=== PATIENT | male | born 1960 | race Caucasian/White ===

== ENCOUNTER → 2018-06-30 10:12 | Outpatient (CLI) | payer OTHER, SELFPAY ==
[2018-06-30 11:11] LABS: Absolute Lymphocyte Count 1.91 X10^3/ul (0.83-4.51); Absolute Neutrophil Count 4.3 X10^3/uL (2.0-7.7); Basophil# 0.02 X10^3/uL; Basophil% 0.3 % (0-1); Eosinophil# 0.25 X10^3/uL; Eosinophils% 3.5 % (0-5); Hematocrit 42.5 % (40-54); Lymphocyte # 1.91 X10^3/ul (4.0); Lymphocyte % 26.8 % (19-41); Mean Corp Hgb Conc 35.3 g/gl (32-36); Mean Corpuscular Hgb 31.4 pg (27.0-32.0); Mean Corpuscular Volume 88.9 fL (80-94); Mean Platelet Vol. 10.5 fl (6.2-12.0); Monocyte# 0.67 X10^3/uL; Monocyte% 9.4 % (0-10); Neutrophil # 4.27 X10^3/uL (2.7-7.7); Neutrophil % 59.7 % (47-70); Platelet Count 271 K/mm3 (150-450); RBC Distribution Width CV 12.2 % (11.6-14.6); RBC Distribution Width SD 39.4 fl (35.1-43.9); Red Blood Count 4.78 M/mm3 (4.6-6.2); White Blood Count 7.1 K/mm3 (4.4-11.0)
[2018-06-30 11:17] LABS: POSITIVE COUNT NO; POSITIVE DIFFERENTIAL NO; POSITIVE MORPHOLOGY NO
[2018-06-30 11:44] LABS: AST(SGOT) 43 U/L (15-37); Alanine Aminotransfer ALT/SGPT 88 U/L (16-61); Albumin, Serum 4.3 g/dL (3.2-5.0); Alkaline Phosphatase 67 U/L (45-117); Anion Gap 10 (5-15); BUN 16 mg/dL (7-18); BUN/Creat Ratio 15.8 RATIO (10-20); Bilirubin, Direct 0.11 mg/dL (0.00-0.30); Chloride 104 mmol/L (98-107); Cholesterol 174 mg/dL (200); Creatinine, Serum 1.01 mg/dL (0.70-1.30); EST Glomerular Filtration Rate 80 mL/min (>60); Est Glom Filt Rate - Afr Amer 97 mL/min (>60); Globulin 3.5 g/dL (2.2-4.2); Glucose 108 mg/dL (74-106); High Density Lipoprotein 43 mg/dL; Potassium 4.4 mmol/L (3.5-5.1); Protein, Total 7.8 g/dL (6.4-8.2); Sodium Level 140 mmol/L (136-145); T4 Total, Thyroxin 10.6 ug/dL (4.5-12.1); Triglycerides 150 mg/dL; Very Low Density Lipoprotein 30 mg/dL (5-40)
== END ==
PROVIDERS: Family Provider Family Medicine; PCP Family Medicine; Visit Provider Internal Medicine Cardiovascular Disease
DX: R00.0 Tachycardia, unspecified (principal); E78.5 Hyperlipidemia, unspecified; I10 Essential (primary) hypertension; R94.31 Abnormal electrocardiogram [ECG] [EKG]
CPT/HCPCS: 36415; 80048; 80061; 80076; 83735; 84436; 84443; 85025

== ENCOUNTER → 2018-07-07 09:43 | Outpatient (CLI) | payer OTHER, SELFPAY | PROVIDERS: Family Provider Family Medicine; PCP Family Medicine; Visit Provider Internal Medicine Cardiovascular Disease | DX: R00.0 Tachycardia, unspecified (principal); I10 Essential (primary) hypertension; R94.31 Abnormal electrocardiogram [ECG] [EKG] | CPT/HCPCS: 93306; Q9957; A4216; C8929 ==

== ENCOUNTER 2019-01-06 07:42 | Emergency (ER) | payer OTHER, SELFPAY ==
[2018-12-07 10:27] VITALS: BMI 34.1
[2019-01-06 07:46] VITALS: BP 168/102; PULSE 80; RESP 16; TEMP 35.9; O2SAT 98; BMI 34.4
--- NOTE | 2019-01-06 08:30 | RAD_ITS ---
STUDY: X-RAY - RIGHT KNEE REASON FOR EXAM: Male, 58 years old. Pain. TECHNIQUE: 3 view(s) of the knee. COMPARISON: None. FINDINGS: Normal visualized distal femur. Normal visualized proximal tibia and fibula. Normal proximal tibiofibular articulation. Normal medial femorotibial compartment. Normal lateral femorotibial compartment. Normal patellofemoral articulation. The soft tissue structures are unremarkable. RAD/Knee 3 Views IMPRESSION: Normal x-ray examination of the knee. Electronically Signed: Franky Lockwood MD at 9:32 EST , Service support ,
--- NOTE | 2019-01-06 08:30 | VDLE_ITS ---
Reason For Study: pain RIGHT LEFT GSV is normal. CFV is compressible, spontaneous, phasic, CFV is compressible, spontaneous, phasic, competent, and demonstrates normal competent and demonstrates normal augmentation. augmentation. FV is compressible, spontaneous, phasic, competent and demonstrates normal augmentation. POP V is compressible, spontaneous, phasic, competent and demonstrates normal augmentation. T/P Trunk is compressible. PTV is compressible. RT PerV is compressible. Hypoechoic area behind the knee measuring .866 x 2.04 x 3.04 cm. Area is nonvascular. Procedure Exam performed portable in ED. The exam was diagnostic. A preliminary report was called and/or faxed to Dr. Galan. Interpretation Summary There is no evidence of right lower extremity deep vein thrombosis. Right greater saphenous vein appears patent and compressible segmentally. Right popliteal Cavazos's cyst 0.87 x 2.04 x 4.04 cm Normal flow patterns left common femoral vein Ordering Physician: Stephanie Galan Performed By: Deshaun Alvares RVT
--- NOTE | 2019-01-06 09:46 | ED.DCSUM_ITS ---
- ER Visit Summary Date of Service: 01/06/19 Chief Complaint: [Pain and swelling to right knee] History of Present Illness: The patient is a 58 M [presents the emergency department complaint of pain and swelling to his right knee that started about a week ago. Patient denies any injury. He denies any fever. He denies recent illness. Patient states that at times when walking it feels like it snaps and causes him more pain. Patient states that his daughter was concerned about possibility of a blood clot in his leg. He denies recent travel or surgery. He denies any chest pain or shortness of breath.] Physical Examination: [HEENT-PERRLA, EOMI. Cranial nerves II through XII grossly intact. TMs clear. Mucous membranes moist. No adenopathy. Cardiovascular-regular rate and rhythm without murmur or ectopy Lungs-clear to auscultation, chest wall stable without crepitus or subcu emphysema Abdomen-normoactive bowel sounds, soft, nontender, no rebound or rigidity, no peritoneal signs. Extremities-intact ?4, normal range of motion, normal pulses, atraumatic. Right knee-patient has a small joint effusion noted suprapatellar. There is no erythema or warmth. Slightly decreased range of motion secondary to pain. There was a popping sensation noted when I flex the knee. Ligamentously stable. Neurovascular intact distally. Test Results: [Venous Doppler of the right lower extremity was negative for DVT. X-rays of the right knee obtained were normal.] Emergency Department Course and Treatment: [Patient was given a knee immobilizer and he refused crutches. Patient states he has crutches at home.] Treatment Plan: [Patient will be advised to follow-up with his orthopedic surgeon whom he has an appointment with in 5 days. I suspect he may have a meniscal injury. There is no evidence for septic joint.] Disposition: [Discharged home in stable condition.] Impression: [Right knee sprain-possible internal derangement] This note was generated with [employer] dictation software. It may contain incorrect words, spelling, and punctuation that were not noted in review of the chart prior to signing ED Disposition - Plan for ED Patient: Referrals: Lu Honeycutt PA-C [Primary Care Provider] -
--- NOTE | 2019-01-06 09:46 | ED.DEP ---
ED Disposition - Plan for ED Patient: Instructions: ED Meniscal Injury Knee Poss Prescriptions: Hydrocodone Bitart/Apap 5-325 [[place] 5MG-325MG] 1 tab PO Q4H PRN PRN 2 Days #10 tab PRN Reason: Pain Referrals: Lu Honeycutt PA-C [Primary Care Provider] - Eduard Plummer MD [STAFF PHYSICIAN] - 5-7 Days
[2019-01-06 10:03] VITALS: PULSE 84; RESP 16; O2SAT 98
== END 2019-01-06 10:05 | disposition home or self-care (01) ==
PROVIDERS: Emergency Provider Emergency Medicine; Family Provider Family Medicine; PCP Family Medicine
DX: S83.91XA Sprain of unspecified site of right knee, initial encounter (principal); X58.XXXA Exposure to other specified factors, initial encounter; Y93.9 Activity, unspecified; Y92.9 Unspecified place or not applicable; K21.9 Gastro-esophageal reflux disease without esophagitis; I10 Essential (primary) hypertension; E78.00 Pure hypercholesterolemia, unspecified; F32.9 Major depressive disorder, single episode, unspecified; Z79.82 Long term (current) use of aspirin; Z79.899 Other long term (current) drug therapy
CPT/HCPCS: 73562; 93971; 99282

== ENCOUNTER → 2021-01-06 19:28 | Outpatient (CLI) | payer OTHER, SELFPAY ==
[2020-12-11 11:21] VITALS: BMI 36.4
== END ==
PROVIDERS: PCP Family Medicine; Referring Provider Internal Medicine Critical Care Medicine; Visit Provider Internal Medicine Critical Care Medicine
DX: G47.10 Hypersomnia, unspecified (principal)
CPT/HCPCS: 95810

== ENCOUNTER → 2021-01-31 20:28 | Outpatient (CLI) | payer OTHER, SELFPAY ==
[2020-12-11 11:21] VITALS: BMI 36.4
== END ==
PROVIDERS: PCP Family Medicine; Referring Provider Nurse Practitioner Acute Care; Visit Provider Nurse Practitioner Acute Care
DX: G47.33 Obstructive sleep apnea (adult) (pediatric) (principal)
CPT/HCPCS: 95811

== ENCOUNTER → 2021-02-11 12:15 | Outpatient (CLI) | payer OTHER, SELFPAY ==
[2020-12-11 11:21] VITALS: BMI 36.4
[2021-02-11 12:44] VITALS: PULSE 100; PULSE 111; PULSE 114; PULSE 115; PULSE 116; PULSE 94; PULSE 96; PULSE 97; O2SAT 93; O2SAT 95; O2SAT 97
--- NOTE | 2021-02-12 10:22 | WT_ITS ---
PSN 6 Minute Walk Test - 6 Minute Walk Test 6 Minute Walk Test: 6 Minute Walk Test PSN:6-Minute Walk Test Start: 02/11/21 12:44 Freq: Status: Active Protocol: [id number] Document 02/11/21 12:44 [facility] (Rec: 02/11/21 12:47 [facility] [id number]) 6 Minute Walk Test Date Performed 02/11/21 Time Performed 12:30 Height 5 ft 7 in Weight: 220 lb Weight in Pounds 220.[address]: Bunny Padilla Assistive device used: None Pre-test Oxygen Delivery Method Room Air Pulse Ox (%) 95 Pulse Rate (60-100 beats/min) 94 Dyspnea Tara Scale (0-10) 1 1st minute Oxygen Delivery Method Room Air Pulse Ox (%) 95 Pulse Rate (60-100 beats/min) 96 Dyspnea Tara Scale (0-10) 2 Number of Rests Taken 0 Reported Symptoms Increased Work of Breathing 2nd minute Oxygen Delivery Method Room Air Pulse Ox (%) 93 Pulse Rate (60-100 beats/min) 100 Dyspnea Tara Scale (0-10) 2 Number of Rests Taken 0 Reported Symptoms Increased Work of Breathing 3rd minute Oxygen Delivery Method Room Air Pulse Ox (%) 93 Pulse Rate (60-100 beats/min) 111 H Dyspnea Tara Scale (0-10) 3 Number of Rests Taken 0 Reported Symptoms Increased Work of Breathing 4th minute Oxygen Delivery Method Room Air Pulse Ox (%) 93 Pulse Rate (60-100 beats/min) 114 H Dyspnea Tara Scale (0-10) 3 Number of Rests Taken 0 5th minute Oxygen Delivery Method Room Air Pulse Ox (%) 93 Pulse Rate (60-100 beats/min) 116 H Dyspnea Tara Scale (0-10) 3 Number of Rests Taken 0 Reported Symptoms Increased Work of Breathing 6th minute Oxygen Delivery Method Room Air Pulse Ox (%) 93 Pulse Rate (60-100 beats/min) 115 H Dyspnea Tara Scale (0-10) 3 Number of Rests Taken 0 Reported Symptoms Increased Work of Breathing Post-test Oxygen Delivery Method Room Air Pulse Ox (%) 97 Pulse Rate (60-100 beats/min) 97 Dyspnea Tara Scale (0-10) 1 Full Laps Walked 17 Partial Lap, Number of Tiles Walked 42 Total Distance Walked (ft) 1045 - Interpretation Interpretation: The patient ambulated 1045 feet over the course of 6 minutes beginning on room air without any assistive devices. Pretesting oxygen saturation was noted to be 95% on room air. With ambulation, the elma oxygen saturation was 93%. There was no significant exertional oxygen desaturation. - Recommendations Recommendations: There is no indication for the use of supplemental oxygen at this time.
== END ==
PROVIDERS: PCP Family Medicine; Referring Provider Internal Medicine Critical Care Medicine; Visit Provider Internal Medicine Critical Care Medicine
DX: E66.09 Other obesity due to excess calories (principal); R06.02 Shortness of breath
CPT/HCPCS: 94618

== ENCOUNTER → 2021-02-18 06:56 | Outpatient (CLI) | payer OTHER, SELFPAY ==
[2020-12-11 11:21] VITALS: BMI 36.4
== END ==
PROVIDERS: PCP Family Medicine; Referring Provider Internal Medicine Critical Care Medicine; Visit Provider Internal Medicine Critical Care Medicine
DX: E66.09 Other obesity due to excess calories (principal); R06.02 Shortness of breath
CPT/HCPCS: 94060; 94726; 94729

== ENCOUNTER → 2022-07-23 | Outpatient (CLI) | payer OTHER, SELFPAY ==
[2022-07-23 13:05] LABS: Anion Gap 9 (5-15); BUN 13 mg/dL (7-18); BUN/Creat Ratio 13.1 RATIO (10-20); Calcium,Total 8.8 mg/dL (8.5-10.1); Chloride 103 mmol/L (98-107); EST Glomerular Filtration Rate 81 mL/min (>60); Est Glom Filt Rate - Afr Amer 97 mL/min (>60); Glucose 163 mg/dL (74-106); Potassium 3.8 mmol/L (3.5-5.1); Sodium Level 136 mmol/L (136-145)
== END | disposition home or self-care (01) ==
LOC: LAB 10:32
PROVIDERS: PCP Family Medicine; Referring Provider Internal Medicine Cardiovascular Disease; Visit Provider Internal Medicine Cardiovascular Disease
DX: I10 Essential (primary) hypertension (principal)
CPT/HCPCS: 36415; 80048

== ENCOUNTER 2022-11-20 10:17 | Emergency (ER) | payer OTHER, SELFPAY ==
[2022-11-20 10:18] VITALS: BP 156/89; PULSE 98; RESP 18; TEMP 36.6; O2SAT 96; BMI 35.0
--- NOTE | 2022-11-20 11:36 | EDS_ITS ---
HPI History of Present Illness Chief Complaint: General Illness Informant: patient Onset/Context/Timing Onset: Days (4) Context: Sudden Onset Timing: Intermittent Quality: Aching Location: Frontal Worsened by: Nothing Relieved by: Nothing Narrative Narrative: Patient presents with palpitations and headache that have been intermittent over the last 4 days. Patient states he also fell 4 days ago. Patient states he was lightheaded before he fell. Patient states he hit his head when he fell. Patient denies any nausea or vomiting. Patient denies any chest pain. Patient denies any shortness of breath. Patient states his headache is over the frontal area. Patient describes it as dull and aching. Patient states nothing makes it better and nothing makes it worse. Patient denies any visual changes. Patient denies any neck pain. Patient states he has chronic back pain. [facility] Medical History Abnormal EKG Hyperlipidemia Hypertension SANDI (obstructive sleep apnea) Tachycardia Home Medications gemfibrozil 600 mg tablet 600 mg PO BIDAC 04/26/16 [History Last Taken Unknown] escitalopram oxalate 20 mg tablet 20 mg PO QDAY 06/22/18 [History Last Taken Unknown] aspirin 81 mg tablet,delayed release (Adult Aspirin Regimen) 81 mg PO QDAY 06/23/18 [History Last Taken Unknown] cholecalciferol (vitamin D3) 25 mcg (1,000 unit) tablet 1,000 unit PO QDAY 06/23/18 [History Last Taken Unknown] cinnamon bark 500 mg capsule (Cinnamon) 1 mg PO DAILY 06/23/18 [History Last Taken Unknown] multivitamin 1 tab PO QDAY 06/23/18 [History Last Taken Unknown] omega-3 fatty acids 1,000 mg capsule (Fish Oil Concentrate) 1,000 mg PO QDAY 06/23/18 [History Last Taken Unknown] omeprazole 20 mg tablet,delayed release 20 mg PO QDAY 06/23/18 [History Last Taken Unknown] alprazolam 0.5 mg tablet 0.5 mg PO QHS PRN 03/25/22 [History Last Taken Unknown] potassium chloride 10 mEq tablet,extended release(part/cryst) (Klor-Con M) 10 meq PO DAILY #90 tabs 04/29/22 [Rx Last Taken Unknown] losartan 100 mg-hydrochlorothiazide 12.5 mg tablet 1 tab PO DAILY This is a dose increase #30 tabs 07/14/22 [Rx Last Taken Unknown] amlodipine 10 mg tablet 10 mg PO DAILY #30 tabs 07/29/22 [Rx Last Taken Unknown] carvedilol 3.125 mg tablet (Coreg) 3.125 mg PO BID #60 tabs 08/12/22 [Rx Last Taken Unknown] Allergy/AdvReac Type Severity Reaction Status Date / Time ranitidine Allergy Intermediate Itching Verified 08/12/22 10:07 amoxicillin [From Augmentin] AdvReac Intermediate Diarrhea Verified 08/12/22 10:07 and Nausea clavulanic acid AdvReac Intermediate Diarrhea Verified 08/12/22 10:07 [From Augmentin] and Nausea Family History Mother Hypertension Father , Unknown cause No problems noted. Surgical History H/O Achilles tendon repair (~2015) Right wrist injury (~2017) Social History Smoking Status: Never smoker how long ago did patient quit smokin years ago alcohol intake: current alcohol intake frequency: 3 or more drinks per day Alcohol type: beer substance use type: does not use caffeine: Yes Type: coffee Number of servings: 1 ROS ROS ED Constitutional Constitutional ED: Denies chills or fever(s) Eyes Eyes: Denies blurry vision or change in vision ENT ENT ED: Denies rhinorrhea or sore throat Cardiovascular Cardiovascular: Reports palpitations and racing heartbeat; Denies chest pain Respiratory/Chest Respiratory/Chest: Denies cough or dyspnea Gastrointestinal Gastrointestinal: Denies nausea or vomiting Genitourinary Genitourinary ED: Denies dysuria or hematuria Musculoskeletal Musculoskeletal: Reports back pain; Denies neck pain Integumentary Denies abscess or rash Neurologic Neurologic: Reports headache(s); Denies weakness Allergic/Immunologic Allergic/Immunologic ED: Denies mouth swelling or urticaria EXAM Physical Exam Const Vital Signs: 11/20/22 10:18 11/20/22 10:31 11/20/22 12:14 Temperature 98 F Temperature Source Temporal Pulse Rate 98 89 Respiratory Rate 18 17 Respiratory Effort Normal Non-Labored Blood Pressure 156/89 H 134/75 H Blood Pressure Mean 111 94 Pulse Ox 96 Oxygen Delivery Method Room Air 11/20/22 13:00 Temperature Temperature Source Pulse Rate 91 Respiratory Rate 17 Respiratory Effort Blood Pressure 139/74 H Blood Pressure Mean 95 Pulse Ox 96 Oxygen Delivery Method Room Air Positive well nourished and well developed General Appearance ED: well developed HEENT Reports moist mucous membranes Neck supple and no JVD Resp normal respiratory effort and clear to auscultation bilaterally Cardio regular rate, regular rhythm and no murmurs GI normal to inspection, nondistended, normoactive bowel sounds and non-tender Palpation: soft Extremity normal to inspection General Extremety ED: Negative for edema or tenderness General Extremity: Negative for edema Neuro oriented x3, CN's II-XII intact bilaterally and no sensory deficits noted Sensorium / Orientation: alert Motor Exam: strength 5/5 throughout Psych mental status grossly normal Skin no rashes or lesions noted MDM MDM MDM Narrative Medical decision making narrative: EKG was obtained. On my interpretation, it showed a normal sinus rhythm with a rate of 86. MO interval, QRS interval, and QTc intervals were all normal. Etoile was normal. There are nonspecific ST-T wave changes. CT scan of the brain was obtained. There is no acute intracranial abnormality. This was interpreted by the radiologist and reviewed by myself. CBC shows mild leukocytosis of 12.1. Comprehensive metabolic profile showed a glucose of 286. Anion gap was normal. COVID-19 rapid antigen was obtained and was negative. Influenza A and influenza B antigens were obtained and were negative. PA and lateral chest x-ray was obtained. There are 2 views. On my interpretation, lung turpin are clear. There is normal cardiac silhouette. Bony thorax is normal. There is no acute process noted. Radiologist also interpreted the x-ray and agrees. Patient is still having headache on reevaluation. Patient was given Reglan, Benadryl, and Toradol. Case was discussed with Dr. Ball. He recommended obtaining a 48- hour Holter monitor and he will follow-up with the patient in the office. Patient understands and is agreeable with the plan. All questions were answered metabolic Lab Data Attestation: I reviewed the patient's lab results. Labs: Laboratory Results - last 24 hr 11/20/22 11/20/22 10:40 10:40 WBC 12.1 H RBC 4.11 L Hgb 13.3 Hct 37.2 L MCV 90.5 MCH 32.4 H MCHC 35.8 RDW Std Deviation 40.0 RDW Coeff of Karime 12.2 Plt Count 288 MPV 10.8 Immature Gran % (Auto) 0.400 Neut % (Auto) 75.6 H Lymph % (Auto) 12.5 L Moffat % (Auto) 9.0 Eos % (Auto) 2.1 Baso % (Auto) 0.4 Absolute Neuts (auto) 9.1 H Absolute Lymphs (auto) 1.51 Nucleated RBC % 0 Sodium 138 Potassium 3.9 Chloride 107 Carbon Dioxide 26.0 Anion Gap 5 BUN 14 Creatinine 1.10 Estim Creat Clear Calc 63.43 Est GFR (MDRD) Af Amer 87 Est GFR (MDRD) Non-Af 72 BUN/Creatinine Ratio 12.7 Glucose 286 H Calcium 8.6 Total Bilirubin 0.50 AST 7 L ALT 33 Alkaline Phosphatase 79 Troponin I High Sens 6 Total Protein 7.0 Albumin 3.1 L Globulin 3.9 Albumin/Globulin Ratio 0.8 L Radiography Chest X-Ray - ED: 2 View, Read by ED Physician, Read by Radiologist and No Acute Disease Diagnostic Testing: Clinical Impression(s) from Imaging Studies Brain CT 11/20/22 11:48 IMPRESSION: Chronic involutional changes of the brain. Extensive paranasal sinusitis Electronically Signed: Arie Blanton MD at 12:18 EST , Chest X-Ray 11/20/22 12:00 IMPRESSION: Normal x-ray examination of the chest. Electronically Signed: Arie Blanton MD at 12:20 EST , EKG Initial EKG: Attestation: I personally reviewed and interpreted this EKG as follows: Interpretation: Sinus Rhythm (86) and Non-Specific ST Changes Prior EKG tracings: available for review Prior: Unchanged (08/12/2022) Discharge Plan Triage Chief Complaint: General Illness ED Provider: Schwiger,Thee Dx/Rx/DC Orders Clinical Impression: Palpitations, Headache Prescriptions: No Action cholecalciferol (vitamin D3) 1,000 unit tablet 1,000 unit PO QDAY omega-3 fatty acids [Fish Oil Concentrate] 1,000 mg capsule 1,000 mg PO QDAY omeprazole 20 mg tablet,delayed release (DR/EC) 20 mg PO QDAY aspirin [Adult Aspirin Regimen] 81 mg tablet,delayed release (DR/EC) 81 mg PO QDAY multivitamin tablet 1 tab PO QDAY cinnamon bark [Cinnamon] 500 mg capsule 1 mg PO DAILY escitalopram oxalate 20 mg tablet 20 mg PO QDAY alprazolam 0.5 mg tablet 0.5 mg PO QHS PRN carvedilol [Coreg] 3.125 mg tablet 3.125 mg PO BID Qty: 60 11RF Rx Instructions: must administer with a meal/food gemfibrozil 600 MG tablet 600 mg PO BIDAC potassium chloride [Klor-Con M10] 10 mEq tablet,ER particles/crystals 10 meq PO DAILY Qty: 90 3RF losartan-hydrochlorothiazide 100-12.5 mg tablet 1 tab PO DAILY Qty: 30 11RF amlodipine 10 mg tablet 10 mg PO DAILY Qty: 30 11RF Primary Care Provider: Lu Honeycutt Referrals: Dae Ball MD [Med Staff - Active Staff] - 3-5 Days Lu Honeycutt PA-C [Primary Care Provider] - 3-5 Days Disposition Disposition: Home, Self Care
--- NOTE | 2022-11-20 11:48 | CT_ITS ---
STUDY: CT BRAIN WITHOUT CONTRAST REASON FOR EXAM: Male, 62 years old. Head injury RADIATION DOSAGE (If Supplied By Facility): CTDIvol = ( 44.99 ) mGy, DLP = ( 796.11 ) mGycm TECHNIQUE: Transaxial CT imaging of the brain was performed without administration of intravenous contrast material. Individualized dose optimization techniques were used for this CT. COMPARISON: No relevant priors. FINDINGS: Normal soft tissue structures. Normal calvarium. Normal size ventricles and extra-axial spaces for the patient''s age. Normal white matter tracts of the cerebral hemispheres. Normal basal ganglia and thalami. Normal brainstem. Normal cerebellum. There is no intracranial hemorrhage. There are no findings of an acute ischemic infarction. Diffuse paranasal sinusitis with near complete occlusion of the right maxillary sinus and occlusion of the right ostiomeatal complex CT/Brain/Head without Contrast IMPRESSION: Chronic involutional changes of the brain. Extensive paranasal sinusitis Electronically Signed: Arie Blanton MD at 12:18 EST ,
--- NOTE | 2022-11-20 11:49 | EKG12_ITS ---
Test Reason : Blood Pressure : / mmHG Vent. Rate : 086 BPM Atrial Rate : 086 BPM P-R Int : 168 ms QRS Dur : 086 ms QT Int : 352 ms P-R-T Axes : 026 096 083 degrees QTc Int : 421 ms Normal sinus rhythm Rightward axis Nonspecific T wave abnormality Abnormal ECG Confirmed by ANGUS WOLFE, HALIE ([id number]), business editor GUY MOREIRA ([id number]) on 11/24/2022 10:47:18 AM Referred By: TANA Confirmed By:HALIE GRECO MD
--- NOTE | 2022-11-20 12:00 | RAD_ITS ---
STUDY: X-RAY CHEST REASON FOR EXAM: Male, 62 years old. Palpitations TECHNIQUE: PA and 2 lateral views of the chest. COMPARISON: None. FINDINGS: EKG leads overlie the chest The lungs are clear and expanded. There is no demonstrated pleural abnormality. Normal size heart. Normal mediastinum and zeb. Normal visualized pulmonary arteries. Normal visualized aortic arch and descending thoracic aorta. Normal visualized thoracic spine. Normal visualized ribs, clavicles, and shoulders. There is no demonstrated abnormality of the visualized soft tissue structures of the upper abdomen. RAD/Chest PA and Lateral IMPRESSION: Normal x-ray examination of the chest. Electronically Signed: Arie Blanton MD at 12:20 EST ,
--- NOTE | 2022-11-20 12:11 | ED.RN ---
Patient requested Motrin for his headache, got verbal order for ibuprofen from physician and when I went to administer patient remembered taking Advil 800mg around 10 am this morning. Patient was notified that I could not give ibuprofen for pain at this time due to time since last dose. Patient denied wanting tylenol or IV medication for headache at time.
[2022-11-20 12:14] VITALS: BP 134/75; PULSE 89; RESP 17
[2022-11-20 12:23] LABS: Absolute Lymphocyte Count 1.51 X10^3/uL (0.83-4.51); Absolute Neutrophil Count 9.1 X10^3/uL (2.0-7.7); Basophil# 0.05 X10^3/uL; Basophil% 0.4 % (0-1); Eosinophil# 0.25 X10^3/uL; Eosinophils% 2.1 % (0-5); Hematocrit 37.2 % (40-54); Hemoglobin 13.3 g/dL (13.0-16.5); Lymphocyte # 1.51 X10^3/ul (0.83-4.51); Lymphocyte % 12.5 % (19-41); Mean Corp Hgb Conc 35.8 g/dL (32-36); Mean Corpuscular Hgb 32.4 pg (27.0-32.0); Mean Corpuscular Volume 90.5 fL (80-94); Mean Platelet Vol. 10.8 fl (6.2-12.0); Monocyte# 1.08 X10^3/uL; NRBC Flagged by Analyzer 0 % (0-5); Neutrophil # 9.11 X10^3/uL (2.7-7.7); Neutrophil % 75.6 % (47-70); Platelet Count 288 K/mm3 (150-450); RBC Distribution Width CV 12.2 % (11.6-14.6); Red Blood Count 4.11 M/mm3 (4.6-6.2); White Blood Count 12.1 K/mm3 (4.4-11.0)
[2022-11-20 12:35] LABS: ALB/GLOB Ratio 0.8 RATIO (0.9-2.4); AST(SGOT) 7 U/L (15-37); Alanine Aminotransfer ALT/SGPT 33 U/L (16-61); Albumin, Serum 3.1 g/dL (3.2-5.0); Alkaline Phosphatase 79 U/L (45-117); Anion Gap 5 (5-15); BUN 14 mg/dL (7-18); BUN/Creat Ratio 12.7 RATIO (10-20); Calcium,Total 8.6 mg/dL (8.5-10.1); Chloride 107 mmol/L (98-107); EST Glomerular Filtration Rate 72 mL/min (>60); Est Glom Filt Rate - Afr Amer 87 mL/min (>60); Estimated Creatinine Clearance 63.43 ml/min; Globulin 3.9 g/dL (2.2-4.2); Glucose 286 mg/dL (74-106); Potassium 3.9 mmol/L (3.5-5.1); Sodium Level 138 mmol/L (136-145); Troponin-I HS 6 pg/mL (3.0-78.0)
[2022-11-20 13:00] VITALS: BP 139/74; PULSE 91; RESP 17; O2SAT 96
[2022-11-20] MEDS: DiphenhydrAMINE 50 MG/ML Syringe 25 MG IV (14:20)
[2022-11-20] MEDS: Metoclopramide 10 MG/2 ML Vial IV (14:21)
[2022-11-20] MEDS: Ketorolac 15 MG/ML Vial IV (14:21)
== END 2022-11-20 14:57 | disposition home or self-care (01) ==
PROVIDERS: Emergency Provider Emergency Medicine; PCP Family Medicine; Visit Provider Emergency Medicine
DX: R00.2 Palpitations (principal); M54.9 Dorsalgia, unspecified; I10 Essential (primary) hypertension; R51.9 Headache, unspecified; E78.5 Hyperlipidemia, unspecified; G89.29 Other chronic pain; Z20.822 Contact with and (suspected) exposure to COVID-19
CPT/HCPCS: 70450; 71046; 80053; 84484; 85025; 87428; 93005; 93225; 93226; 96374; 96375; 99284; A4216

== ENCOUNTER → 2022-11-20 | Outpatient (CLI) | payer OTHER, SELFPAY | END | disposition home or self-care (01) | LOC: CVS 14:41 | PROVIDERS: PCP Family Medicine; Referring Provider Internal Medicine Cardiovascular Disease; Visit Provider Emergency Medicine | DX: R00.2 Palpitations (principal) ==

== ENCOUNTER 2022-12-07 09:21 | Day surgery (SDC) | payer SELFPAY ==
[2022-12-07] VITALS (9 sets, daily range): BP systolic 133–188; BP diastolic 76–102; PULSE 87–96; RESP 16–18; TEMP 36.7–37.2; O2SAT 91–98; BMI 33.5
[2022-12-07] MEDS: Lactated Ringers 1,000 ML 15 ML IV ×2 (10:11→12:55)
--- NOTE | 2022-12-07 10:31 | PCM.DC.SUM ---
Providers Primary Care Physician: Lu Honeycutt PA-C Reason For Visit: INCISION AND DRAINAGE LEFT SEPTAL HEMATOMA Medications at Discharge Home Medications gemfibrozil 600 mg tablet 600 mg PO BIDAC 04/26/16 escitalopram oxalate 20 mg tablet 20 mg PO QDAY 06/22/18 aspirin 81 mg tablet,delayed release (Adult Aspirin Regimen) 81 mg PO QDAY 06/23/18 cholecalciferol (vitamin D3) 25 mcg (1,000 unit) tablet 400 unit PO BID 06/23/18 cinnamon bark 500 mg capsule (Cinnamon) 500 mg PO BID 06/23/18 multivitamin 1 tab PO QDAY 06/23/18 omega-3 fatty acids 1,000 mg capsule (Fish Oil Concentrate) 300 mg PO BID 06/23/18 omeprazole 20 mg tablet,delayed release 20 mg PO QDAY 06/23/18 alprazolam 0.5 mg tablet (Xanax) 0.5 mg PO QHS PRN Anxiety 03/25/22 losartan 100 mg-hydrochlorothiazide 12.5 mg tablet 1 tab PO DAILY This is a dose increase #30 tabs 07/14/22 amlodipine 10 mg tablet 10 mg PO DAILY #30 tabs 07/29/22 carvedilol 3.125 mg tablet (Coreg) 3.125 mg PO BID #60 tabs 08/12/22 potassium chloride 10 mEq tablet,extended release(part/cryst) (Klor-Con M) 10 meq PO DAILY #90 tabs 11/25/22 Weight / BMI Weight Weight: 97 kg Body Mass Index (BMI) 33.5 D/C Instructions Discharge Diet: No restrictions Additional Activity Instructions: No nose blowing Start saline nasal spray tomorrow....3 sprays each nostril 3x/day Please Follow Up With: Derik Morales MD When: 8 days Meaningful Use Info Meaningful Use Diagnoses (Choose all that apply): None applicable Discharge Plan Admission Attending Provider: Derik Morales Primary Care Provider: Lu Honeycutt Discharge Orders/Prescriptions Prescriptions: No Action cholecalciferol (vitamin D3) 1,000 unit tablet 400 unit PO BID omega-3 fatty acids [Fish Oil Concentrate] 1,000 mg capsule 300 mg PO BID omeprazole 20 mg tablet,delayed release (DR/EC) 20 mg PO QDAY aspirin [Adult Aspirin Regimen] 81 mg tablet,delayed release (DR/EC) 81 mg PO QDAY multivitamin tablet 1 tab PO QDAY cinnamon bark [Cinnamon] 500 mg capsule 500 mg PO BID escitalopram oxalate 20 mg tablet 20 mg PO QDAY alprazolam [Xanax] 0.5 mg tablet 0.5 mg PO QHS PRN (Reason: Anxiety) carvedilol [Coreg] 3.125 mg tablet 3.125 mg PO BID Qty: 60 11RF Rx Instructions: must administer with a meal/food gemfibrozil 600 MG tablet 600 mg PO BIDAC losartan-hydrochlorothiazide 100-12.5 mg tablet 1 tab PO DAILY Qty: 30 11RF amlodipine 10 mg tablet 10 mg PO DAILY Qty: 30 11RF potassium chloride [Klor-Con M10] 10 mEq tablet,ER particles/crystals 10 meq PO DAILY Qty: 90 3RF Referrals / Follow Up: Lu Honeycutt PA-C [Primary Care Provider] - Disposition Disposition (needs filled in before D/C Order can be placed): Home, Self Care
[2022-12-07] MEDS: Lidocaine 1% /Epi 1:100 (20ml) 20 ML Vial (11:22)
[2022-12-07] MEDS: Oxymetazoline 0.05% 1 SPRAY SPRAY.BTL 15 SPRAY (11:22)
[2022-12-07] MEDS: Mupirocin Ointment 22gm Tube 1 APPLIC (11:22)
--- NOTE | 2022-12-07 11:36 | PCM.OPRPT ---
Report of Operation Date of Procedure: 12/07/22 Pre-Operative Diagnosis: septal hematoma Post-Operative Diagnosis: same Surgery/Procedure Performed:: Incision and drainage septal hematoma Surgeon: Derik Morales Type of Anesthesia: General Anesthesiologist: Mumtaz Isaac Estimated Blood Loss (mL): minimal Description of Procedure: The patient was taken to the operating room on 12/07/2022. He was placed in the supine position on the operating room table. He was given sufficient general anesthesia. The head of bed was elevated 30 degrees. Patient was draped sterilely. 1% lidocaine with epinephrine injected into the septum bilaterally. Next,, after sufficient vasoconstriction, a stab incision was made inferiorly on the septal mucosa on the left-hand side. Serous fluid was suctioned from the hematoma cavity. Next a stab incision was placed on the right septal mucosa with a 15 blade. Again a serous effusion was suctioned from the hematoma cavity. I then irrigated the cavity with saline and the saline was suctioned from the septum. Next a 4-0 chromic was used to perform a quilting stitch through and through the septum. Next Hernandez nasal splints were applied to each side of the septum and sewn through and through with 3-0 silk. The patient was then awoken and brought to the recovery room in stable condition. blood loss minimal, replacement none. sponge, instrument, and needle count correct at the end of procedure.
[2022-12-07] MEDS: HYDROcodone Bitartrate/Apap 5/325 Tablet PO (13:49)
== END 2022-12-07 14:27 | disposition home or self-care (01) ==
LOC: SDC 09:22 → AC 09:25
PROVIDERS: PCP Family Medicine; Referring Provider Otolaryngology; Visit Provider Otolaryngology
PROC: (CPT 30520; principal; 2022-12-07 10:50)
DX: S00.33XA Contusion of nose, initial encounter (principal); I10 Essential (primary) hypertension; J34.89 Other specified disorders of nose and nasal sinuses; F41.9 Anxiety disorder, unspecified; F32.A Depression, unspecified; E78.5 Hyperlipidemia, unspecified; K21.9 Gastro-esophageal reflux disease without esophagitis; G47.33 Obstructive sleep apnea (adult) (pediatric)
CPT/HCPCS: 30020; 00160; J7120; J2405

== ENCOUNTER → 2023-11-25 | Outpatient (CLI) | payer MEDICARE, OTHER, SELFPAY ==
--- OUTSIDE RECORDS SUMMARY | 2023-11-25 10:51 | XMS RPT_ITS | CCD ---
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 Name Role Phone HILLS, YANDEL Admitting Unavailable BASIN, YANDEL Primary Care Unavailable HILLS, YANDEL Attending Unavailable HILLS, YANDEL PAC Consulting Unavailable PROVIDER, UNKNOWN Consulting Unavailable BASIN, YANDEL PAC Consulting Unavailable ROOF, NICO BOOKING SUPERVISOR%C Admitting Unavailable ROOF, NICO BOOKING SUPERVISOR%C Primary Care Unavailable ROOF, NICO BOOKING SUPERVISOR%C Attending Unavailable PROVIDER, UNKNOWN Consulting Unavailable BASIN, YANDEL Admitting Unavailable BASIN, YANDEL Primary Care Unavailable BASIN, YANDEL Attending Unavailable BASIN, YANDEL PAC Consulting Unavailable PROVIDER, UNKNOWN Consulting Unavailable Problems Active Problems Problem Classification Problem Date Documented Da te Episodic/Chronic Diabetes mellitus with complications (2 sources) Type 2 diabetes mellitus with hyperglycemia; Translations: [Type 2 diabetes mellitus with hyperglycemia] Onset: 12-09-2022 Chronic Disorders of lipid metabolism (1 source) Mixed hyperlipidemia; Translations: [Mixed hyperlipidemia] Onset: 12-09-2022 Chronic Essential hypertension (1 source) Essential (primary) hypertension; Translations: [Essential (primary) hypertension] Onset: 12-09-2022 Chronic Past or Other Problems Problem Classification Problem Date Documented Da te Episodic/Chronic Other screening for suspected conditions (not mental disorders or infectious disease) (2 sources) Encounter for screening for other suspected endocrine disorder; Translations: [Encounter for screening for malignant neoplasm of prostate] Onset: 12-09-2022 Episodic Results Test Name Value Interpretation Reference Range Facil ity Encounters Encounter Date Encounter Type Care Provider Facility Start: 07-12-2023 ambulatory [facility] Start: 12-09-2022 End: 12-09-2022 ambulatory [facility] Procedures Date Procedure Procedure Detail Performing Clinician Start: 12-09-2022 PSA screening [facility] Payers Date Payer Category Payer Unknown [id number] 1960 Unknown [id number] 1960 Unknown [id number] Unknown [id number] Summary Purpose Family History No Family History Records FoundNo Family History Records Found Advance Directives No Advanced Directives Records FoundNo Advanced Directives Records Found Additional Source Comments (unrecognized sect ion and content) No Status Records FoundNo Status Records Found INFORMATION SOURCE (unrecogn ized section and content) DATE CREATED AUTHOR AUTHOR'S ORGANIZ ATION 07/12/2023 [facility] FOR RECORDS PERTAINING TO PATIENTS WHO ARE OR HAVE BEEN ENROLLED IN A CHEMICAL DEPENDENCY/SUBSTANCEABUSE PROGRAM, SOME INFORMATION MAY BE OMITTED. This clinical summary was aggregated from multiple sources. Caution should be exercised in using it in the provision of clinical care. This summary normalizes information from multiple sources, and as a consequence, information in this document may materially change the coding, format and clinical context of patient data. In addition, data may be omitted in some cases. CLINICAL DECISIONS SHOULD BE BASED ON THE PRIMARY CLINICAL RECORDS. [facility]. provides no warranty or guarantee of the accuracy or completeness of information in this document.
[2023-11-25 11:13] LABS: Absolute Lymphocyte Count 1.76 X10^3/uL (0.83-4.51); Absolute Neutrophil Count 4.7 X10^3/uL (2.0-7.7); Basophil# 0.04 X10^3/uL; Basophil% 0.5 % (0-1); Eosinophil# 0.52 X10^3/uL; Eosinophils% 6.7 % (0-5); Hematocrit 40.5 % (40-54); Hemoglobin 13.9 g/dL (13.0-16.5); Lymphocyte # 1.76 X10^3/ul (0.83-4.51); Lymphocyte % 22.8 % (19-41); Mean Corp Hgb Conc 34.3 g/dL (32-36); Mean Corpuscular Hgb 31.2 pg (27.0-32.0); Mean Corpuscular Volume 90.8 fL (80-94); Mean Platelet Vol. 10.6 fl (6.2-12.0); Monocyte# 0.69 X10^3/uL; Monocyte% 8.9 % (0-10); NRBC Flagged by Analyzer 0 % (0-5); Neutrophil % 60.8 % (47-70); Platelet Count 316 K/mm3 (150-450); RBC Distribution Width CV 12.3 % (11.6-14.6); RBC Distribution Width SD 40.4 fl (35.1-43.9); Red Blood Count 4.46 M/mm3 (4.6-6.2); White Blood Count 7.7 K/mm3 (4.4-11.0)
[2023-11-25 11:53] LABS: BNP,B-Type NATRIURETIC PEPTIDE 17.9 pg/mL (0-100)
[2023-11-25 11:56] LABS: Anion Gap 8 (5-15); BUN 14 mg/dL (7-18); BUN/Creat Ratio 13.7 RATIO (10-20); Calcium,Total 9.1 mg/dL (8.5-10.1); Chloride 106 mmol/L (98-107); Creatinine, Serum 1.02 mg/dL (0.70-1.30); EST Glomerular Filtration Rate 78 mL/min (>60); Est Glom Filt Rate - Afr Amer 94 mL/min (>60); Glucose 179 mg/dL (74-106); Potassium 3.8 mmol/L (3.5-5.1); Sodium Level 138 mmol/L (136-145)
== END | disposition home or self-care (01) ==
PROVIDERS: PCP Family Medicine; Visit Provider Nurse Practitioner Family
DX: R06.02 Shortness of breath (principal); R53.83 Other fatigue; I10 Essential (primary) hypertension
CPT/HCPCS: 36415; 80048; 83880; 85025

== ENCOUNTER → 2025-02-23 | Outpatient (CLI) | payer MEDICARE, OTHER, SELFPAY ==
--- NOTE | 2025-02-23 09:43 | RAD_ITS ---
PROCEDURE: CHEST PA AND LATERAL 02/23/2025 REASON FOR EXAM: CAD TECHNIQUE: Frontal and lateral views of the chest. COMPARISON: None available FINDINGS: The lungs appear clear. Incidental calcified granuloma right upper lung. No pneumothorax or pleural effusion. The cardiac and mediastinal contours appear within limits. Old appearing left more than right- sided rib fracture deformities. Mild wedge deformity lower thoracic spine. Upper lumbar spondylosis/discogenic change. RAD/Chest PA and Lateral IMPRESSION: No evidence of acute disease. Reading Location: [id number]
[2025-02-23 10:32] LABS: Absolute Lymphocyte Count 2.49 X10^3/uL (0.83-4.51); Absolute Neutrophil Count 7.3 X10^3/uL (2.0-7.7); Basophil# 0.05 X10^3/uL; Basophil% 0.4 % (0-1); Eosinophils% 4.4 % (0-5); Hematocrit 40.1 % (40-54); Hemoglobin 14.2 g/dL (13.0-16.5); Lymphocyte # 2.49 X10^3/ul (0.83-4.51); Lymphocyte % 21.7 % (19-41); Mean Corp Hgb Conc 35.4 g/dL (32-36); Mean Corpuscular Hgb 31.3 pg (27.0-32.0); Mean Corpuscular Volume 88.5 fL (80-94); Mean Platelet Vol. 10.4 fl (6.2-12.0); Monocyte# 1.13 X10^3/uL; Monocyte% 9.8 % (0-10); NRBC Flagged by Analyzer 0 % (0-5); Neutrophil % 63.5 % (47-70); Platelet Count 313 K/mm3 (150-450); RBC Distribution Width SD 38.7 fl (35.1-43.9); Red Blood Count 4.53 M/mm3 (4.6-6.2); White Blood Count 11.5 K/mm3 (4.4-11.0)
[2025-02-23 11:25] LABS: Anion Gap 14 (5-15); BUN 14 mg/dL (4-19); Calcium,Total 9.5 mg/dL (7.6-11.0); Carbon Dioxide 21.3 mmol/L (21.0-32.0); Chloride 105 mmol/L (98-108); Creatinine, Serum 0.94 mg/dL (0.70-1.20); EST Glomerular Filtration Rate 89 (>60); Glucose 150 mg/dL (70-99); Sodium Level 140 mmol/L (133-145)
== END | disposition home or self-care (01) ==
PROVIDERS: PCP Family Medicine; Referring Provider Internal Medicine Cardiovascular Disease; Visit Provider Internal Medicine Cardiovascular Disease
DX: R06.02 Shortness of breath (principal); I25.10 Atherosclerotic heart disease of native coronary artery without angina pectoris; R94.31 Abnormal electrocardiogram [ECG] [EKG]
CPT/HCPCS: 36415; 71046; 80048; 85025

== ENCOUNTER 2025-03-12 07:23 | Day surgery (SDC) | payer MEDICARE, OTHER, SELFPAY ==
[2025-03-09 07:59] VITALS: BMI 34.2
--- NOTE | 2025-03-12 09:02 | CL.D_ITS ---
Patient Name: GEETA RODGERS Study Date: 03/12/2025 Performing: Raman Parmar MD Ht: 67 inches 170.18 cm : 1960 Wt: 219.01 lbs 99.34 kg Age: 64 Gender: male BSA: 2.1 PROCEDURE(S) PERFORMED [id number])LHC/COR/LV CLINICAL PROFILE AND INDICATIONS Indications: Suspected CAD Heart Failure: None Stress/Imaging Stress/Image Study Performed: No CAD Presentations: Stable angina. CONCLUSIONS Non obstructive coronary arteries Normal LV size, wall motion,and systolic function RECOMMENDATIONS Medical therapy DESCRIPTION OF PROCEDURE The patient arrived to the procedure lab. The risks and benefits of the procedure as well as a full description of our services here and current unavailability of surgical backup were fully explained to the patient and/or their significant other prior to the catheterization. The Timeout was completed, verifying the correct patient and procedure. The patient's procedural site was prepped and draped in the usual fashion. Local anesthetic was given subcutaneously to right radial region with Lidocaine 2%. Using a modified Seldinger technique, arterial access was obtained via the right radial artery, a 6Fr sheath was inserted. Left Coronary Artery selective angiography was performed in multiple views using a 5 Fr. 4.0 Glencoe catheter. Right Coronary Artery selective angiography was then performed in multiple views using a 5 Fr. 4.0 [place]coe catheter. Left Ventriculography was performed in GOMEZ projection using a 5 Fr. Pigtail catheter. LV to AO pullback pressures were then recorded.The arterial sheath was pulled and a TR Band was applied for hemostasis 10 ml of air CORONARY ANGIOGRAPHY DOMINANCE: Right Dominant LEFT HEART ASSESSMENT Left Ventricular Ejection Fraction: by LV Gram 70 % Normal LV wall motion Normal Left Ventricular systolic function LEFT MAIN: Angiographically normal LEFT ANTERIOR DESCENDING ARTERY: Mild luminal irregularities less than 30% CIRCUMFLEX ARTERY: Mild luminal irregularities RIGHT CORONARY ARTERY: No significant disease noted COMPLICATIONS No Complications PROCEDURE MEDICATIONS Versed 1 mg IV Fentanyl 50 mcg IV Versed 1 mg IV Oxygen: 2 L/min via nasal cannula Heparin given IA 03/12/2025 08:42:21 Verapamil 2.5mg, Ntg 100mcgs, 3000 units of Heparin given IA 03/12/2025 08:42:21 SUMMARY OF HEMODYNAMIC DATA Time AIR REST ECG 07:39:31 AO 100/67 (81) SA 08:44:25 LV 100/8, 13 08:52:54 LV 102/8, 11 08:53:02 LV 98/8, 21 08:53:28 LV 98/8, 22 08:53:37 LVp 98/7, 21 08:53:42 AOp 97/57 (75) 08:53:49 Signed By Raman Parmar MD On 03/12/2025 09:01:16 Raman Parmar MD
== END 2025-03-12 10:31 | disposition home or self-care (01) ==
PROVIDERS: PCP Family Medicine; Referring Provider Internal Medicine Cardiovascular Disease; Visit Provider Internal Medicine Cardiovascular Disease
DX: I20.89 Other forms of angina pectoris (principal); I10 Essential (primary) hypertension; E78.00 Pure hypercholesterolemia, unspecified; G47.33 Obstructive sleep apnea (adult) (pediatric); K21.9 Gastro-esophageal reflux disease without esophagitis; Z79.82 Long term (current) use of aspirin; Z79.899 Other long term (current) drug therapy; Z87.891 Personal history of nicotine dependence
CPT/HCPCS: 93458; 99152; 99153; Q9967; C1769; C1894